=== PATIENT | female | born 1955 | race Caucasian/White ===

== ENCOUNTER 2016-12-18 11:59 | Emergency (ER) | payer OTHER ==
[~2016-12-18] VITALS: Ht 170.2 cm; Wt 99.1 kg
[~2016-12-18 11:59] MED LIST: ASPI-973 PO; BISA-67 PO; FENO135C PO; MULT1CAP33 PO; OLME1TAB3 PO; OMEG1CAP17 PO
[2016-12-18 12:02] VITALS: BP 152/95; PULSE 86; RESP 18; O2SAT 98
--- NOTE | 2016-12-18 12:11 | ED.REPORT ---
HPI-Allergic Reaction Date of Service Dec 18, 2016 ED Provider: Blake Falcon MD 61 year old female with HTN presents to the ER accompanied by her with throat swelling and hoarse voice onset after returning from her exercise class just prior to arrival. She also states that she has been experiencing increasingly frequent episodes of lip and chin swelling over the past few weeks , typically onset after dinner around 8:30. When this happens she treats with Benadryl and symptoms are resolved by the following morning. Patient denies rash , hives, nasal congestion, sore throat, fever, or any recent changes in diet. Her blood pressure medication was changed some time last month. Nursing Notes Stated Complaint: ALLERGIC REACTION Chief Complaint: Allergic Reaction Nursing Notes Reviewed: Yes Allergies: Coded Allergies: amoxicillin (Verified Allergy, Intermediate, Rash, 08/22/16) codeine (Verified Allergy, Intermediate, Nausea,Vomiting, 08/22/16) Scheduled Aspirin (Aspirin) 81 Mg Tablet 81 MG PO DAILY Bisacodyl (Dulcolax) 5 Mg Tablet.dr 5 MG PO DAILY Fenofibric Acid (Choline) (Trilipix) 135 Mg Capsule.dr 135 MG PO DAILY Multivitamin (Multivitamins) 1 Each Capsule 1 EACH PO DAILY Olmesartan/HCTZ 40-12.5 mg (Benicar HCT 40-12.5 mg) 1 Each Tablet 1 TABLET PO DAILY [place]-3 Fatty Acids/Fish Oil (Fish Oil Conc 1,000 mg Softgel) 1 Each Capsule 1 EACH PO DAILY Prednisone (PredniSONE) 20 Mg Tablet 40 MG PO DAILY General Time Seen by MD: 12:10 Chief Complaint Swelling face (Lips), Swelling throat Hx Obtained From: Patient, Spouse Arrived By: Walk-in Onset Occurred: 46 - 59 minutes ago Symptom Duration: Since onset Progression Since Onset: Unchanged Associated with: Reports: Lips swollen, Throat swollen, Denies: Eyes swollen, Itching localized, Lightheaded/dizziness, Rash/redness all over, Welts/hives Past Medical History Past Medical History Reports: Hypertension Past Surgical History Foot WTE Smoking History Unknown if Ever Smoker Social History Other Social History: Good social support, Ambulatory Status Independent Review of Systems Constitutional: Denies: Chills, Fever Ears / Nose / Throat: Reports: Throat swelling, Voice change, Denies: Mouth pain, Nasal congestion, Sore throat, Throat pain Respiratory: Denies: Non-productive cough, Shortness of breath GI: Denies: Abdominal pain, Nausea, Vomiting Skin: Denies Rash Allergy / Immune: Denies: Anaphylaxis, Hives, Itching, Rhinorrhea, Sneezing Complete sys rev & neg: except as marked. Physical Exam Initial Vital Signs Vital Signs (First) Date Time Temp Pulse Resp B/P Pulse Ox O2 Delivery O2 Flow Rate FiO2 12/18/16 12:02 36.2 86 18 152/95 98 Room Air Initial VS: Reviewed Head / Eyes: Atraumatic, Normocephalic Neck: Supple, Non-tender, Full range of motion Extremities: Vascular intact, Neuro intact, No swelling, No tenderness Neurologic: Alert, Oriented, Nonfocal Psychiatric: Mood/affect normal, Behavior normal, Normal thought content General/Constitutional: Awake, Alert, Well developed, Well nourished Appearance / Presentation: Positive: Obese Respiratory / Chest: Breath sounds NL, Breath sounds = bilat, No respiratory distress, No rales, No rhonchi, No wheezing, No retractions, No stridor Cardiovascular: Heart rate NL, Regular rhythm, Heart sounds NL, Peripheral circulation NL Skin: Color NL, No rash, Warm, Dry, Turgor NL, No swelling ENT: Airway patent, Mucous membranes moist, Pharynx NL Hoarse voice Interpretation & Diagnostics Lab Results Interpretation Test 12/18/16 12:11 12/18/16 14:06 Hold Purple Top Tube Received (Received) Hold Blue Top Tube Received (Received) Hold [place] Top Tube Received (Received) Hold Urine Received (Received) Re-Eval/Medical Decision Med Decision/Clinical Course 61-year-old female presenting complaining of a hoarse voice that started this morning. She reports she has had some lip swelling and times on the last couple weeks daily but none today. She started a new blood pressure medication and is worried that this is causing allergic reaction. There were no sign symptoms anaphylaxis on arrival. She was given Benadryl with improvement in symptoms. Possible allergic reaction. Recommend she discontinue her blood pressure medication and talk to her primary doctor about a new medication. Unclear trigger. It also could be possible that the patient is developing laryngitis. Gave patient one dose of Solu-Medrol here. She will be discharged with a steroid course given possible allergic reaction. Benadryl as needed. Return percussion given regarding signs and symptoms anaphylaxis. Follow up primary doctor 1-2 days. Source of Hx: Old records Re-Evaluation/Progress : Time of Eval: 13:19 Re-Evaluation/Progress Note: Discussed lab results and plan to discharge. Patient is amenable to the plan. Return precautions given. All other questions addressed. Counseled Regarding: Diagnosis, Lab results, Need for follow-up, When/why to return to ED Discharge & Departure Primary Impression: Allergic reaction Disposition: Home Discharge Condition All VS Reviewed: Yes Condition: Stable Patient Instructions: Anaphylaxis (DC) Additional Instructions: Follow-up with your primary care provider tomorrow as directed. Return to the ER if you develop throat swelling, tongue swelling, difficulty breathing, hives , or any other worsening or concerning symptoms. Take Benadryl as needed. Referrals: Aimee Myers MD (PCP) Ivania Attestation Portions of this note were transcribed by Chuy Sales. I, Dr. Falcon, personally performed the history, physical exam and medical decision-making; I reviewed and confirmed the accuracy of the information in the transcribed note. Signed by: Ivania Parra, 12/18/2016 - 14:00 copies to: Aimee Myers MD, Ben M MD Dec 18, 2016 12:11 CHUY SALES Dec 18, 2016 12:23
[2016-12-18 13:06] VITALS: BP 130/66; PULSE 69; RESP 17; O2SAT 95
[2016-12-18] MEDS ORDERED: MethylprednisoLONE Sodium Succinate 62.5 mg/mL 2 mL Inj IVPUSH ONE (13:30)
[2016-12-18] MEDS ORDERED: PRE20 PO (13:59)
[2016-12-18 14:00] VITALS: BP 128/56; PULSE 63; RESP 11; O2SAT 99
[2016-12-18 14:42] VITALS: BP 122/63; PULSE 79; RESP 22; O2SAT 100
== END 2016-12-18 14:00 | disposition home or self-care (01) ==
LOC: SED 11:59
DX: R49.0 Dysphonia (principal); T78.40XA Allergy, unspecified, initial encounter; X58.XXXA Exposure to other specified factors, initial encounter; Y92.9 Unspecified place or not applicable; Y93.9 Activity, unspecified; Y99.9 Unspecified external cause status; I10 Essential (primary) hypertension; Z79.82 Long term (current) use of aspirin; Z88.0 Allergy status to penicillin; Z88.5 Allergy status to narcotic agent
CPT/HCPCS: 96374; 96375; 99284; J1200; J2930